=== PATIENT | female | born 1970 | race Caucasian/White ===

== ENCOUNTER 2018-01-11 08:41 | Inpatient (IN) ==
[2018-01-11] MEDS ORDERED: niCARdipine Inj 25 MG in Sodium Chlor 0.9% Inj 240 ML IV.CONT PRN (09:05)
--- NOTE | 2018-01-11 09:08 | ED ---
HPI General Chief Complaint: Neuro Symptoms/Deficit Stated Complaint: blood pressure complaint Time Seen by Provider: 01/11/18 09:00 Source: patient and RN notes reviewed Mode of arrival: wheelchair History of Present Illness HPI Narrative: The patient is a 47-year-old female with history of narcolepsy and cataplexy she is a nurse here on the ninth floor and around 750 she started having diaphoresis feeling lightheaded and nauseous with blurry vision and a blood pressure 174/107. Patient was brought to the emergency department for evaluation at 9 AM. She had difficulty transferring from the wheelchair to the bed and has left-sided weakness. Onset (ago): minute(s) (70) Time: 07:50 Last Observed Normal: 07:50 Timing confirmed by: other (co-workers) Location: Reports right face, left arm and left leg History of same: No Severity: mild Quality: Reports weak Relieving factors: none Context: Reports sudden onset On Anticoagulants: No Associated symptoms: Reports confusion and other (nausea, diaphoresis, lightheaded, ) Treatments Prior to Arrival: Reports none Related Data Allergies Allergy/AdvReac Type Severity Reaction Status Date / Time No Known Allergies Allergy Unverified 01/11/18 09:03 Review of Systems ROS: all other systems reviewed are negative (pt with cataplexy and narcolepsy) REPLACED BY [facility] Medical History Medical History HTN (hypertension) (Acute) Social History Social History Substance History: No History of Abuse Smoking Status: Current every day smoker Tobacco Type: Cigarettes How Often Do You Have a Drink Containing Alcohol: Monthly or less Recent Travel in [facility] within the Last 8 Weeks: No Recent Out of Country Travel within the Last 8 Weeks: No Immunization History Tetanus Immunization: <5 Years Exam Narrative Exam Narrative: GENERAL: alert and oriented in mild distress due to anxiety SKIN: Focused skin assessment warm/dry. HEAD: Atraumatic. Normocephalic. EYES: Pupils equal and round. No scleral icterus. No injection or drainage. ENT: No nasal bleeding or discharge. Mucous membranes pink and moist. NECK: Trachea midline. No JVD. CARDIOVASCULAR: Regular rate and rhythm. No murmur appreciated. RESPIRATORY: No accessory muscle use. Clear to auscultation. Breath sounds equal bilaterally. GASTROINTESTINAL: Abdomen soft, non-tender, nondistended. Hepatic and splenic margins not palpable. MUSCULOSKELETAL: No obvious deformities. No clubbing. No cyanosis. No edema. . PSYCHIATRIC: Appropriate mood and affect; insight and judgment normal. Neuro General: alert, awake, oriented x3, moves all extremities and unable to assess gait Cranial Nerves: PERRL, EOM intact bilaterally, no nystagmus, hearing normal, able to elevate shoulders bilaterally, individual cranial nerve findings VII: abnormal (right facial droop) and Symmetric palate elevation Cognition: normal cognition Speech: speech normal Motor: strength not 5/5 throughout, no pronator drift and muscle tone abnormal left upper extremity other (4/5 when compared to left)left lower extremity other (4/5 when compared to left falls after 5 seconds) DTR's: Rt Brachioradialis: 2+, Lt Brachioradialis: 2+, Lt Patellar: 0 and Rt Ankle: 0 Course Reevaluation(s) Reevaluation #1: Patient have completely resolved. NIH at this time is 0 and her blood pressure is 159/94. Neurology recommends p.o. Plavix and aspirin and admission to ICU stepdown Time: 10:01 Consultations Consultation #1: Dr. Schaefer wants to be informed of the results for CTs. Time: 09:09 Initial Documented Vital Signs Temperature 97.8 F 01/11/18 08:45 Pulse Rate 87 01/11/18 08:45 Respiratory Rate 16 01/11/18 08:45 Blood Pressure 182/106 H 01/11/18 08:45 Pulse Oximetry 98 01/11/18 08:45 Last Documented Vital Signs Temperature 97.8 F 01/11/18 08:45 Pulse Rate 70 01/11/18 09:13 Respiratory Rate 19 01/11/18 09:13 Blood Pressure 159/94 H 01/11/18 09:13 Pulse Oximetry 99 01/11/18 09:13 Critical Care Time Critical Care Time: Yes Total Critical Care Time: 30 Attestation: Aggregate critical care time was 30 minutes. Time to perform other separately billable procedures was not included in the critical care time. My time did not include minutes spent treating any other patients simultaneously or on activities that did not directly contribute to the patient's treatment. The services I provided to this patient were to treat and/or prevent clinically significant deterioration that could result in: I provided critical care services requiring my management, as noted below: Chart data review, documentation time, medication orders and management, vital sign assessments/reviewing monitor data, ordering and reviewing lab tests, ordering and interpreting/reviewing x-rays and diagnostic studies, care of the patient and discussion of the patient with the admitting physicians. NIH Stroke Scale NIHSS Time Completed NIHSS Time Completed: 09:00 NIH Stroke Scale Level of Consciousness: 0-Alert Orientation Questions: 0-Answers both correct Responds to Commands: 0-Both tasks correct Gaze Eye Movement: 0-Horizontal movement WNL Visual Finley: 0-No visual field defect Facial Movement: 1-Minor facial palsy Motor Functions Arm LEFT: 0-No drift Motor Functions Arm RIGHT: 0-No drift Motor Functions Leg LEFT: 1-Drift before 5 seconds Motor Functions Leg RIGHT: 0-No drift Limb Ataxia: 1-Ataxia in one limb Sensory Loss: 0-No sensory loss Best Language: 0-Normal Articulation: 0-Normal Extinction or Inattention Sensory: 0-Absent Total: 3 Medical Decision Making MDM Narrative Medical decision making narrative: Hypokalemia noted and replaced in the ED. NIH 0 at time of reassessment at all neurologic deficits have resolved.She with neurologic symptoms that resolved within an hour. Possibly hypertensive crisis versus TIA. CT head and neck were unremarkable. Neurology was consulted and recommends admission to an intensive care unit with Plavix and p.o. aspirin. Medical Screen Exam Complete: Yes Emergency Medical Condition: Yes Lab Data Lab results reviewed: Yes I reviewed the patient's lab results. Result diagrams: 01/11/18 09:00 01/11/18 09:00 Lab Results 01/11/18 01/11/18 01/11/18 Range/Units 08:59 09:00 09:00 WBC 9.9 (4.0-11.0) th/mm3 RBC 4.95 (4.00-5.30) mil/mm3 Hgb 14.5 (11.6-15.3) gm/dL POC Hgb (Calc) (11.6-15.3) g/dL Hct 43.1 (35.0-46.0) % POC Hct (35-46.0) % MCV 87.1 (80.0-100.0) fL MCH 29.4 (27.0-34.0) pg MCHC 33.7 (32.0-36.0) % RDW 13.4 (11.6-17.2) % Plt Count 238 (150-450) th/mm3 MPV 9.6 (7.0-11.0) fL Neut % (Auto) 58.7 (16.0-70.0) % Lymph % (Auto) 31.8 (9.0-44.0) % Knott % (Auto) 6.7 (0.0-8.0) % Eos % (Auto) 2.3 (0.0-4.0) % Baso % (Auto) 0.5 (0.0-2.0) % Neut # (Auto) 5.8 (1.8-7.7) th/mm3 Lymph # (Auto) 3.1 (1.0-4.8) th/mm3 Knott # (Auto) 0.7 (0.0-0.9) th/mm3 Eos # (Auto) 0.2 (0.0-0.4) th/mm3 Baso # (Auto) 0.1 (0.0-0.2) th/mm3 WBC Differential . Differential Comment Auto diff final PT 10.0 (9.8-11.6) sec INR 1.0 Ratio APTT 25.2 (24.3-30.1) sec POC Sodium (137-144) mmol/L Sodium (136-145) meq/L POC Potassium (3.6-5.0) mmol/L Potassium (3.5-5.1) meq/L POC Chloride (102-111) mmol/L Chloride (98-107) meq/L Carbon Dioxide (21.0-32.0) meq/L Anion Gap (5-15) meq/L POC BUN (5-21) mg/dL BUN (7-18) mg/dL Creatinine (0.50-1.00) mg/dL POC Creatinine (0.6-1.3) mg/dL Estimated GFR (>89) mL/min POC Glucose 103 (68-110) mg/dl Random Glucose (74-106) mg/dL Calcium (8.5-10.1) mg/dL Total Creatine Kinase (26-192) U/L CK-MB (CK-2) (0.5-3.6) ng/mL CK-MB (CK-2) % (0.0-4.0) % Troponin I (0.02-0.05) ng/mL 01/11/18 Range/Units 09:00 WBC (4.0-11.0) th/mm3 RBC (4.00-5.30) mil/mm3 Hgb (11.6-15.3) gm/dL POC Hgb (Calc) 14.3 (11.6-15.3) g/dL Hct (35.0-46.0) % POC Hct 42.0 (35-46.0) % MCV (80.0-100.0) fL MCH (27.0-34.0) pg MCHC (32.0-36.0) % RDW (11.6-17.2) % Plt Count (150-450) th/mm3 MPV (7.0-11.0) fL Neut % (Auto) (16.0-70.0) % Lymph % (Auto) (9.0-44.0) % Knott % (Auto) (0.0-8.0) % Eos % (Auto) (0.0-4.0) % Baso % (Auto) (0.0-2.0) % Neut # (Auto) (1.8-7.7) th/mm3 Lymph # (Auto) (1.0-4.8) th/mm3 Knott # (Auto) (0.0-0.9) th/mm3 Eos # (Auto) (0.0-0.4) th/mm3 Baso # (Auto) (0.0-0.2) th/mm3 WBC Differential Differential Comment PT (9.8-11.6) sec INR Ratio APTT (24.3-30.1) sec POC Sodium 145 H (137-144) mmol/L Sodium 141 (136-145) meq/L POC Potassium 3.1 L (3.6-5.0) mmol/L Potassium 3.2 L (3.5-5.1) meq/L POC Chloride (102-111) mmol/L Chloride 106 (98-107) meq/L Carbon Dioxide 24.5 (21.0-32.0) meq/L Anion Gap 11 (5-15) meq/L POC BUN 21 (5-21) mg/dL BUN 21 H (7-18) mg/dL Creatinine 0.67 (0.50-1.00) mg/dL POC Creatinine 0.6 (0.6-1.3) mg/dL Estimated GFR Greater than 89 (>89) mL/min POC Glucose 100 (68-110) mg/dl Random Glucose 100 (74-106) mg/dL Calcium 9.4 (8.5-10.1) mg/dL Total Creatine Kinase 253 H (26-192) U/L CK-MB (CK-2) 4.5 H (0.5-3.6) ng/mL CK-MB (CK-2) % 1.8 (0.0-4.0) % Troponin I Less than 0.02 L (0.02-0.05) ng/mL Imaging Data Radiologist's impression: Head CTA 01/11/18 09:03 CONCLUSION: 1. Unremarkable CTA of the brain. Chest X-Ray 01/11/18 09:04 CONCLUSION: No acute cardiopulmonary disease. Head CT 01/11/18 09:04 CONCLUSION: 1. Unremarkable CT scan of the brain. Report was called by [ Dr. Browne to Dr. Powell at 9:20 AM] Neck CTA 01/11/18 09:09 CONCLUSION: 1. Unremarkable CTA of the carotids. ECG Data EKG Prior to Arrival: No Attestation: I personally reviewed and interpreted this ECG as follows: Interpretation: Sinus rhythm with a first-degree AV block. Left atrial enlargement. Heart rate 83 bpm QTc 416 ms KS interval [address]- T wave abnormalities. No signs of acute ischemia. Discharge Plan Discharge Disposition Patient Disposition: 30 Still Patient Discharge Condition Condition: Stable Discharge Details Diagnosis: Transient cerebral ischemia, Hypokalemia, Hypertensive crisis Physicians Team ED Provider: Neal Powell Discharge Interventions Interventions: Vital Signs Last Done: 01/11/18 09:13 Status ED Status: Pending Admission
[2018-01-11] MEDS ORDERED: Sod Chloride 0.9% Inj 1,000 ML IV.CONT SCH (09:15)
[2018-01-11 09:19] LABS: Baso # (Auto) 0.1 th/mm3 (0.0-0.2); Baso % (Auto) 0.5 % (0.0-2.0); Eos # (Auto) 0.2 th/mm3 (0.0-0.4); Eos % (Auto) 2.3 % (0.0-4.0); Hematocrit 43.1 % (35.0-46.0); Hemoglobin 14.5 gm/dL (11.6-15.3); Lymph # (Auto) 3.1 th/mm3 (1.0-4.8); Lymph % (Auto) 31.8 % (9.0-44.0); Mean Corpuscular HGB Conc 33.7 % (32.0-36.0); Mean Corpuscular Hemoglobin 29.4 pg (27.0-34.0); Mean Corpuscular Volume 87.1 fL (80.0-100.0); Mean Platelet Volume 9.6 fL (7.0-11.0); Mono # (Auto) 0.7 th/mm3 (0.0-0.9); Mono % (Auto) 6.7 % (0.0-8.0); Neut # (Auto) 5.8 th/mm3 (1.8-7.7); Neut % (Auto) 58.7 % (16.0-70.0); Platelet Count 238 th/mm3 (150-450); Red Blood Count 4.95 mil/mm3 (4.00-5.30); Red Cell Distribution Width 13.4 % (11.6-17.2); White Blood Count 9.9 th/mm3 (4.0-11.0)
--- NOTE | 2018-01-11 09:23 | CT ---
EXAM DATE: 01/11/2018 9:11 AM EDT AGE/SEX: 47 years / Female INDICATIONS: Stroke alert, left sided weakness, right facial droop CLINICAL DATA: This is the patient's initial encounter. Patient reports that signs and symptoms have been present for 1 day and indicates a pain score of 0/10. MEDICAL/SURGICAL HISTORY: Hypertension. None. RADIATION DOSE: 35.47 CTDI (mGy) COMPARISON: No prior exams available for comparison. TECHNIQUE: CT of the head without contrast. Using automated exposure control and adjustment of the mA and/or kV according to patient size, radiation dose was kept as low as reasonably achievable to ob tain optimal diagnostic quality images. DICOM format image data is available electronically for revi ew and comparison. FINDINGS: Cerebrum: The ventricles are normal for age. No evidence of midline shift, mass lesion, hemorrhage or acute infarction. No extraaxial fluid collections are seen. Posterior Fossa: The cerebellum and brainstem are intact. The 4th ventricle is midline. The cerebe llopontine angle is unremarkable. Extracranial: The visualized portion of the orbits is intact. Skull: The calvaria is intact. No evidence of skull fracture. CONCLUSION: 1. Unremarkable CT scan of the brain. Report was called by [ Dr. Browne to Dr. Powell at 9:20 AM] Electronically signed by: Sergio Browne MD 01/11/2018 9:22 AM EDT
[2018-01-11 09:30] LABS: Activated Partial Thrombo Time 25.2 sec (24.3-30.1)
[2018-01-11 09:38] LABS: Anion Gap 11 meq/L (5-15); Blood Urea Nitrogen 21 mg/dL (7-18); Calcium 9.4 mg/dL (8.5-10.1); Carbon Dioxide 24.5 meq/L (21.0-32.0); Chloride 106 meq/L (98-107); Glomerular Filtration Rate Greater Than 89 mL/min (>89); Glucose,Random 100 mg/dL (74-106); Potassium 3.2 meq/L (3.5-5.1); Sodium 141 meq/L (136-145)
[2018-01-11 09:42] LABS: Creatine Kinase 253 U/L (26-192)
--- NOTE | 2018-01-11 09:44 | CT ---
EXAM DATE: 01/11/2018 9:11 AM EDT AGE/SEX: 47 years / Female INDICATIONS: Stroke alert. Left sided weakness. Right facial droop. CLINICAL DATA: This is the patient's initial encounter. Patient reports that signs and symptoms have been present for 1 day and indicates a pain score of 10/10. MEDICAL/SURGICAL HISTORY: Hypertension. None. RADIATION DOSE: 28.47 CTDI (mGy) ; Combined studies [place] [facility] [place]. . TECHNIQUE: Volumetric scanning was performed using a multi-row detector CT scanner during bolus infu dorina of 95 ml Visipaque 320 (iodixanol) nonionic water-soluble contrast as a cumulative dose for mul tiple exams. The data was post processed with a variety of visualization algorithms including full volume maximum intensity projection, multi-planar sliding thin slab reformation, curved planar reform ation, and surface rendering techniques. Using automated exposure control and adjustment of the mA a nd/or kV according to patient size, radiation dose was kept as low as reasonably achievable to obtain optimal diagnostic quality images. DICOM format image data is available electronically for review a nd comparison. FINDINGS: There is excellent visualization of the major intracranial arteries out to the second-order branch ve ssels. There is no evidence for aneurysm, vessel truncation or stenosis, and no evidence for vascula r malformation. The findings were called by telephone by Dr. Browne to Dr. Schaefer at 9:41 AM. CONCLUSION: 1. Unremarkable CTA of the brain. Electronically signed by: Sergio Browne MD 01/11/2018 9:42 AM EDT
[2018-01-11] MEDS ORDERED: Sod Chloride 0.9% Inj 1,000 ML IV.SIG ONE (09:46)
--- NOTE | 2018-01-11 09:50 | XR ---
EXAM DATE: 01/11/2018 9:04 AM EDT AGE/SEX: 47 years / Female INDICATIONS: Stroke alert. Left-sided weakness and right facial droop. CLINICAL DATA: This is the patient's initial encounter. Patient reports that signs and symptoms have been present for 1 day and indicates a pain score of 0/10. MEDICAL/SURGICAL HISTORY: Hypertension. None. COMPARISON: No prior exams available for comparison. FINDINGS: A single AP view of the chest demonstrates the lungs to be symmetrically aerated without evidence of mass, infiltrate or effusion. The cardiomediastinal contours are unremarkable. Osseous structures a re intact. CONCLUSION: No acute cardiopulmonary disease. Electronically signed by: Onesimo Hoang MD 01/11/2018 9:49 AM EDT
[2018-01-11 09:54] LABS: CKMB Percent 1.8 % (0.0-4.0); Creatine Kinase MB 4.5 ng/mL (0.5-3.6)
[2018-01-11] MEDS ORDERED: Aspirin 325 MG Tablet PO ONE (09:57)
[2018-01-11] MEDS ORDERED: Butalbital/APAP/Caff 50/325/40 MG Tablet PO ONE (10:03)
--- NOTE | 2018-01-11 10:30 | CT ---
EXAM DATE: 01/11/2018 9:10 AM EDT AGE/SEX: 47 years / Female INDICATIONS: Stroke alert. Left sided weakness. Right facial droop. CLINICAL DATA: This is the patient's initial encounter. Patient reports that signs and symptoms have been present for 1 day and indicates a pain score of 10/10. MEDICAL/SURGICAL HISTORY: Hypertension. None. RADIATION DOSE: 28.47 CTDI (mGy) ; Combined studies COMPARISON: No prior exams available for comparison. TECHNIQUE: Volumetric scanning was performed using a multirow detector CT scanner during bolus infus ion of 95 ml Visipaque 320 (iodixanol) nonionic water-soluble contrast as a cumulative dose for mult iple exams. The data was postprocessed with a variety of visualization algorithms including full-vo lume maximum intensity projection, multiplanar sliding thin-slab reformation, curved-planar reformati on, and surface-rendering techniques. Using automated exposure control and adjustment of the mA and/ or kV according to patient size, radiation dose was kept as low as reasonably achievable to obtain op timal diagnostic quality images. DICOM format image data is available electronically for review and comparison. FINDINGS: Aortic Arch: There is a three-vessel origin of the great vessels from the aorta. No evidence of ost ial narrowing Right Carotid: The common carotid artery is intact. The carotid bulb has a normal configuration wit hout ulceration or narrowing. The internal carotid artery lumen is smooth without stenosis. The ext ernal carotid artery is intact. Left Carotid: The common carotid artery is intact. The carotid bulb has a normal configuration with out ulceration or narrowing. The internal carotid artery lumen is smooth without stenosis. The exte rnal carotid artery is intact. Vertebrals: The vertebral arteries are patent bilaterally. No stenotic lesions are seen. Percent stenosis is calculated using the diameter of the stenotic region over the diameter of the nor mal distal internal carotid artery. CONCLUSION: 1. Unremarkable CTA of the carotids. Electronically signed by: Sergio Browne MD 01/11/2018 10:29 AM EDT
[2018-01-11] MEDS ORDERED: KCL 20 mEq/D5W/NaCl 0.9% Inj 1,000 ML IV.CONT SCH (10:44)
[2018-01-11 11:28] LABS: Bacteria,Urine Rare /hpf; Bilirubin,Urine Negative (Negative); Clarity,Urine Hazy (Clear); Color,Urine Yellow (Yellw/Straw); Glucose,Urine (UA) Negative (Negative); Leukocyte Esterase,Urine Negative (Negative); Mucus,Urine Few /lpf (Occasional); Nitrite,Urine Negative (Negative); Specific Gravity,Urine 1.017 (1.002-1.035); Squamous Epithelial Cell,Urine 1 /hpf (0-5)
--- NOTE | 2018-01-11 16:01 | ECHRPT ---
Indication: CVA/TIA CONCLUSIONS The left ventricular systolic function is low normal with an estimated ejection fraction in the rang e of 50- 55%. Wall thickness is normal. Normal left ventricular size. Trace mitral valve regurgitation. BP: / HR: 70 Rhythm: Sinus MEASUREMENTS (Male / Female) Normal Values Technical Quality:Good 2D ECHO LV Diastolic Diameter PLAX 4.8 cm 4.2 - 5.9 / 3.9 - 5.3 cm LV Systolic Diameter PLAX 3.7 cm IVS Diastolic Thickness 1.0 cm 0.6 - 1.0 / 0.6 - 0.9 cm LVPW Diastolic Thickness 1.0 cm 0.6 - 1.0 / 0.6 - 0.9 cm LV Relative Wall Thickness 0.4 LVOT Diameter 2.0 cm M-MODE Aortic Root Diameter MM 2.7 cm LA Systolic Diameter MM 3.3 cm LA Ao Ratio MM 1.2 AV Cusp Separation MM 2.1 cm DOPPLER AV Peak Velocity 151.0 cm/s AV Peak Gradient 9.1 mmHg LVOT Peak Velocity 133.0 cm/s LVOT Peak Gradient 7.1 mmHg AV Area Cont Eq pk 2.8 cm MR Peak Velocity 288.0 cm/s MR Peak Gradient 33.2 mmHg Mitral E Point Velocity 85.9 cm/s Mitral A Point Velocity 73.5 cm/s Mitral E to A Ratio 1.2 LV E' Lateral Velocity 12.8 cm/s Mitral E to LV E' Lateral Ratio 6.7 LV E' Septal Velocity 10.5 cm/s Mitral E to LV E' Septal Ratio 8.2 PV Peak Velocity 117.0 cm/s PV Peak Gradient 5.5 mmHg FINDINGS LEFT VENTRICLE The left ventricular systolic function is low normal with an estimated ejection fraction in the rang e of 50- 55%. Wall thickness is normal. Normal left ventricular size. RIGHT VENTRICLE Normal right ventricular size and systolic function. LEFT ATRIUM The left atrial size is normal. RIGHT ATRIUM The right atrial size is normal. ATRIAL SEPTUM Normal atrial septal thickness without atrial level shunting by limited color doppler interrogation. AORTA The aortic root and proximal ascending aorta are normal in size on limited imaging. MITRAL VALVE Trace mitral valve regurgitation. Mild mitral annular calcification. AORTIC VALVE Trileaflet aortic valve. No aortic valve stenosis or regurgitation. TRICUSPID VALVE Structurally normal tricuspid valve. No tricuspid valve stenosis or regurgitation. PULMONARY VALVE The pulmonary valve is not well visualized. VESSELS The inferior vena cava is normal in size. PERICARDIUM No pericardial effusion. Jhoan Holder MD (Electronically Signed) Final Date:11 January 2018 16:00
--- NOTE | 2018-01-11 16:26 | P.CONNEU ---
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 brought into the ER. They noticed her to have a possible mild left-sided weakness which improved and resolved in the ER NIH stroke scale score 0 therefore not a TPA candidate. She had a CT brain, CT brain carotids performed which were negative. She was quite hypertensive in the ER. no hx of tia/stroke/sz. no hx of clotting d/o. admits to moderate stress. hx of depression, anxiety. hx of narcolepsy with cataplexy. takes effexor/ritalin/xyrem. moved down to [place] over a year ago. Review of Systems All other systems reviewed negative except as stated in HPI PMFSH - History History Provided By: Patient - Medical History Medical History: Medical History (Last Reviewed 01/11/18 @ 17:15 by Gigi Day) HTN (hypertension) - Tobacco History Tobacco Use In Past 30 Days: Yes Smoking Status: Current every day smoker Tobacco Type: Cigarettes - Alcohol History How Often Do You Have a Drink Containing Alcohol: Monthly or less - Substance Use History Substance History: No History of Abuse - Travel History Recent Travel in the [place] Within the Last 8 Weeks: No Recent Travel Out of the Country Within the Last 8 Weeks: No - Immunization History Tetanus Immunization: <5 Years Medications and Allergies Active Medications: Active Medications Sodium Chloride (Ns Inj) 1,000 mls @ 70 mls/hr IV.CONT .[id number] PENDING SALE TO [facility] Stop: 01/11/18 23:32 Last Admin: 01/11/18 09:54 Dose: 70 mls/hr Potassium Chloride/Dextrose/Sod Cl (D5w/Ns + Kcl 20 Meq Inj) 1,000 mls @ 42 mls /hr IV.CONT .[id number] PENDING SALE TO [facility] Last Admin: 01/11/18 12:22 Dose: 42 mls/hr Sodium Chloride (Ns Flush) 2 ml IV.FLUSH PRN PRN PRN Reason: FLUSH AFTER USING IV ACCESS Allergies Allergy/AdvReac Type Severity Reaction Status Date / Time No Known Allergies Allergy Unverified 01/11/18 09:03 Home Medications Medication Instructions Recorded Confirmed Type Effexor XR 75 mg PO DAILY 01/11/18 01/11/18 History Xyrem 01/11/18 01/11/18 History gabapentin 400 mg PO HS 01/11/18 01/11/18 History methylphenidate HCl 10 mg PO BID 01/11/18 01/11/18 History prazosin [Minipress] 3 mg PO DAILY 01/11/18 01/11/18 History venlafaxine 75 mg PO DAILY 01/11/18 01/11/18 History Exam Vital signs: Vital Signs 01/11/18 08:45 01/11/18 08:49 01/11/18 09:03 Temperature 97.8 F Pulse Rate 87 95 H 75 Respiratory Rate 16 21 19 Blood Pressure 182/106 H 204/115 H 193/112 H Pulse Oximetry 98 99 01/11/18 09:07 01/11/18 09:08 01/11/18 09:13 Temperature Pulse Rate 70 70 Respiratory Rate 19 19 Blood Pressure 158/96 H 159/94 H Pulse Oximetry 98 99 99 01/11/18 10:00 01/11/18 14:00 01/11/18 15:00 Temperature 98.2 F Pulse Rate 68 76 70 Respiratory Rate 20 19 Blood Pressure 152/67 H 145/79 H Pulse Oximetry 97 97 Intake & Output 01/10/18 01/11/18 01/11/18 18:59 06:59 18:59 Intake Total 1000 / 1000 Balance 1000 / 1000 Weight 93.44 kg Intake: IV 1000 / 1000 NS Inj 1,000 ML @ Wide Open IV. 1000 / 1000 SIG BOLUS ONE Rx#:[id number] Narrative: GENERAL: in NAD, SKIN: Warm and dry. HEAD: Atraumatic. Normocephalic. EYES: Pupils equal and round. No scleral icterus. ENT: No nasal bleeding or discharge. Mucous membranes pink and moist. NECK: Trachea midline. No JVD. CARDIOVASCULAR: Regular rate and rhythm. RESPIRATORY: No accessory muscle use. MUSCULOSKELETAL: Extremities without clubbing, cyanosis, or edema. No obvious deformities. NEUROLOGICAL: Awake and alert. No aphasia, fluent articulate, No facial asymmetry, OU 3-2mm, slightly mild left eye closure compared to the right Eomi, VFF, No drift, Motor grossly within normal limits. Five out of 5 muscle strength in the arms and legs. Tone normal in all 4 limbs, Sensory normal in all 4 extremities to pin, reflexes symmetric PSYCHIATRIC: Appropriate mood and affect; insight and judgment normal. - Constitutional no acute distress - Routine HEENT Exam Head: Present: normocephalic Eye: Present: EOMI Results - Labs CBC & Chem 7: 01/11/18 09:00 01/11/18 09:00 Labs: Laboratory Results - last 24 hr 01/11/18 01/11/18 01/11/18 08:59 09:00 09:00 WBC 9.9 RBC 4.95 Hgb 14.5 POC Hgb (Calc) Hct 43.1 POC Hct MCV 87.1 MCH 29.4 MCHC 33.7 RDW 13.4 Plt Count 238 MPV 9.6 Neut % (Auto) 58.7 Lymph % (Auto) 31.8 Johnson % (Auto) 6.7 Eos % (Auto) 2.3 Baso % (Auto) 0.5 Neut # (Auto) 5.8 Lymph # (Auto) 3.1 Johnson # (Auto) 0.7 Eos # (Auto) 0.2 Baso # (Auto) 0.1 WBC Differential . Differential Comment Auto diff final PT 10.0 INR 1.0 APTT 25.2 POC Sodium Sodium POC Potassium Potassium POC Chloride Chloride Carbon Dioxide Anion Gap POC BUN BUN Creatinine POC Creatinine Estimated GFR POC Glucose 103 Random Glucose Calcium Total Creatine Kinase CK-MB (CK-2) CK-MB (CK-2) % Troponin I Urine Color Urine Clarity Urine pH Ur Specific [place] Urine Protein Urine Glucose (UA) Urine Ketones Urine Occult Blood Urine Nitrate Urine Bilirubin Urine Urobilinogen Ur Leukocyte Esterase Urine RBC Urine WBC Ur Squamous Epith Cells Urine Bacteria Urine Mucus Micro UA Comment Ur Microscopic Review Urine Culture Comments 01/11/18 01/11/18 01/11/18 09:00 09:49 12:00 WBC RBC Hgb POC Hgb (Calc) 14.3 Hct POC Hct 42.0 MCV MCH MCHC RDW Plt Count MPV Neut % (Auto) Lymph % (Auto) Johnson % (Auto) Eos % (Auto) Baso % (Auto) Neut # (Auto) Lymph # (Auto) Johnson # (Auto) Eos # (Auto) Baso # (Auto) WBC Differential Differential Comment PT INR APTT POC Sodium 145 H Sodium 141 POC Potassium 3.1 L Potassium 3.2 L POC Chloride Chloride 106 Carbon Dioxide 24.5 Anion Gap 11 POC BUN 21 BUN 21 H Creatinine 0.67 POC Creatinine 0.6 Estimated GFR Greater than 89 POC Glucose 100 99 Random Glucose 100 Calcium 9.4 Total Creatine Kinase 253 H CK-MB (CK-2) 4.5 H CK-MB (CK-2) % 1.8 Troponin I Less than 0.02 L Urine Color Yellow Urine Clarity Hazy H Urine pH 8.0 Ur Specific [place] 1.017 Urine Protein Negative Urine Glucose (UA) Negative Urine Ketones Negative Urine Occult Blood Small H Urine Nitrate Negative Urine Bilirubin Negative Urine Urobilinogen Less than 2 Ur Leukocyte Esterase Negative Urine RBC Less than 1 Urine WBC Less than 1 Ur Squamous Epith Cells 1 Urine Bacteria Rare H Urine Mucus Few H Micro UA Comment Culture not ind Ur Microscopic Review Not Reportable Urine Culture Comments Culture not ind - Imaging Impressions Head CTA 01/11/18 09:03 CONCLUSION: 1. Unremarkable CTA of the brain. Chest X-Ray 01/11/18 09:04 CONCLUSION: No acute cardiopulmonary disease. Head CT 01/11/18 09:04 CONCLUSION: 1. Unremarkable CT scan of the brain. Report was called by [ Dr. Browne to Dr. Powell at 9:20 AM] Neck CTA 01/11/18 09:09 CONCLUSION: 1. Unremarkable CTA of the carotids. Review/Management - Diagnosis (1) Migraine Code(s): G43.909 - Migraine, unspecified, not intractable, without status migrainosus Status: Acute Current Visit: Yes (2) Narcolepsy Code(s): G47.419 - Narcolepsy without cataplexy Status: Acute Current Visit : Yes (3) Transient cerebral ischemia Code(s): G45.9 - Transient cerebral ischemic attack, unspecified Status: Acute Current Visit: Yes (4) Hypertensive crisis Code(s): I16.9 - Hypertensive crisis, unspecified Status: Acute Current Visit: Yes - Review/Management Plan: Hypertensive encephalopathy. She is on stimulants and an SN stress reduction RI which can elevate blood pressure in addition to moderate level of stress and anxiety that she is undergoing. I am not completely convinced that she had a TIA but a possibility Recommendation Aspirin 81 mg MRI brain Blood pressure control Echo Lipid, TSH, B12, HbA1c Therapy Telemetry SCDs Consideration of reducing dose of Ritalin or changing Effexor she can follow this up with her sleep doctor outpatient Behavioral modification and risk factor reduction. Weight loss, blood pressure control, blood sugar control, lipid control. Exercise Discharge planning after above studies have been completed (3) Transient cerebral ischemia Qualifiers: Transient cerebral ischemia type: unspecified Qualified Code(s): G45.9 - Transient cerebral ischemic attack, unspecified
--- NOTE | 2018-01-11 17:19 | P.HP ---
History of Present Illness Service: [facility] hospitalist service Primary Care Physician: UNKNOWN Chief Complaint: Generalized weakness lightheaded this History of Present Illness: Patient is a very pleasant 47-year-old female right-handed with history of hypertension but has been off her medications for about 6-8 weeks now that consist of lisinopril 20 mg daily and hydrochlorothiazide 25 mg daily as she states that she has lost weight by diet and working out, depression, cataplexy, obstructive sleep apnea followed by Dr. Owens who while at work here at [facility] started complaining of "not feeling well, lightheaded associated with left sided weakness. Patient did complain of some retro-orbital pain/headache. Specifically complained of the left eye being more blurry than usual and tearing of the left eye. No exudates. Tried to put on dark contact lens and did not feel right She feels like there is something sticking on that left eye. So she did not put in her contact lens Blood pressure was checked and was noted to be 184/107. Blood sugar was 109. Patient was brought down to the ER and admitted for further evaluation and management. Patient denies any recent fever nausea vomiting no diarrhea. Patient did mention that she is going from some emotional issues with her boyfriend. She takes Effexor 75 mg daily, gabapentin 400 mg at bedtime for depression and restless leg syndrome Prazosin 3 mg at bedtime for nightmares, Ritalin 10 mg twice daily for narcolepsy Xyram for narcolepsy 4.5g 10 PM and another dose 3 hours later- scheduled at 1 am Strong family history of colon cancer Inpatient Certification: I certify that the inpatient services were ordered in accordance with Medicare regulations governing the order. This includes certification that hospital inpatient services are reasonable and necessary and in the case of services not specified as inpatient-only under 42 CFR 419.22(n), that they are appropriately provided as inpatient services in accordance to with the 2-midnight benchmark under 43 CFR 412.3(e) Estimated Total Length of Stay (Days): 2 Plans for Post Hospital Care: Not yet determined Review of Systems No fever no chills no cough No nausea vomiting. No bleeding tendencies no leg swelling no history of seizure. PMFSH - History History Provided By: Patient - Medical / Surgical Hx Neg / Unobtainable Medical Problems Denied: Yes - Medical History Medical History: Medical History (Last Reviewed 01/11/18 @ 17:11 by Sam Sinclair MD) HTN (hypertension) - Tobacco History Tobacco Use In Past 30 Days: Yes Smoking Status: Current every day smoker Tobacco Type: Cigarettes - Alcohol History How Often Do You Have a Drink Containing Alcohol: Monthly or less - Substance Use History Substance History: No History of Abuse - Travel History Recent Travel in the [place] Within the Last 8 Weeks: No Recent Travel Out of the Country Within the Last 8 Weeks: No - Immunization History Tetanus Immunization: <5 Years Medications and Allergies Active Medications: Active Medications Sodium Chloride (Ns Inj) 1,000 mls @ 70 mls/hr IV.CONT .[id number] [facility] Stop: 01/11/18 23:32 Last Admin: 01/11/18 09:54 Dose: 70 mls/hr Potassium Chloride/Dextrose/Sod Cl (D5w/Ns + Kcl 20 Meq Inj) 1,000 mls @ 42 mls /hr IV.CONT .[id number] [facility] Last Admin: 01/11/18 12:22 Dose: 42 mls/hr Sodium Chloride (Ns Flush) 2 ml IV.FLUSH PRN PRN PRN Reason: FLUSH AFTER USING IV ACCESS Allergies Allergy/AdvReac Type Severity Reaction Status Date / Time No Known Allergies Allergy Unverified 01/11/18 09:03 Home Medications Medication Instructions Recorded Confirmed Type Effexor XR 75 mg PO DAILY 01/11/18 01/11/18 History Xyrem 01/11/18 01/11/18 History gabapentin 400 mg PO HS 01/11/18 01/11/18 History methylphenidate HCl 10 mg PO BID 01/11/18 01/11/18 History prazosin [Minipress] 3 mg PO DAILY 01/11/18 01/11/18 History venlafaxine 75 mg PO DAILY 01/11/18 01/11/18 History Exam Vital signs: Vital Signs 01/11/18 08:45 01/11/18 08:49 01/11/18 09:03 Temperature 97.8 F Pulse Rate 87 95 H 75 Respiratory Rate 16 21 19 Blood Pressure 182/106 H 204/115 H 193/112 H Pulse Oximetry 98 99 01/11/18 09:07 01/11/18 09:08 01/11/18 09:13 Temperature Pulse Rate 70 70 Respiratory Rate 19 19 Blood Pressure 158/96 H 159/94 H Pulse Oximetry 98 99 99 01/11/18 10:00 01/11/18 14:00 01/11/18 15:00 Temperature 98.2 F Pulse Rate 68 76 70 Respiratory Rate 20 19 Blood Pressure 152/67 H 145/79 H Pulse Oximetry 97 97 Intake & Output 01/10/18 01/11/18 01/11/18 18:59 06:59 18:59 Intake Total 1000 / 1000 Balance 1000 / 1000 Weight 93.44 kg Intake: IV 1000 / 1000 NS Inj 1,000 ML @ Wide Open IV. 1000 / 1000 SIG BOLUS ONE Rx#:[id number] Narrative: Awake alert oriented x3 not in any form of distress blood pressure currently at bedside what BP 145/79 heart rate of 72 regular temperature afebrile HEENT exam anicteric sclerae pink palpebral conjunctivae pupils equally reactive to light slight injected sclerae. Neck was supple no nuchal rigidity no bruit Chest lungs clear breath sounds Heart regular rhythm no murmur Abdomen is soft nontender with good bowel sounds Extremities no clubbing no cyanosis no edema Neurologic exam ANO x3 clear speech Cranial nerves intact Motor 5/5 in all extremities chronic Grossly no sensory deficit DTRs +2 in all extremities Gait slow but steady Results - Labs CBC & Chem 7: 01/11/18 09:00 01/12/18 04:18 Labs: Laboratory Results - last 24 hr 01/11/18 01/11/18 01/11/18 08:59 09:00 09:00 WBC 9.9 RBC 4.95 Hgb 14.5 POC Hgb (Calc) Hct 43.1 POC Hct MCV 87.1 MCH 29.4 MCHC 33.7 RDW 13.4 Plt Count 238 MPV 9.6 Neut % (Auto) 58.7 Lymph % (Auto) 31.8 Gordon % (Auto) 6.7 Eos % (Auto) 2.3 Baso % (Auto) 0.5 Neut # (Auto) 5.8 Lymph # (Auto) 3.1 Gordon # (Auto) 0.7 Eos # (Auto) 0.2 Baso # (Auto) 0.1 WBC Differential . Differential Comment Auto diff final PT 10.0 INR 1.0 APTT 25.2 POC Sodium Sodium POC Potassium Potassium POC Chloride Chloride Carbon Dioxide Anion Gap POC BUN BUN Creatinine POC Creatinine Estimated GFR POC Glucose 103 Random Glucose Calcium Total Creatine Kinase CK-MB (CK-2) CK-MB (CK-2) % Troponin I Urine Color Urine Clarity Urine pH Ur Specific [employer] Urine Protein Urine Glucose (UA) Urine Ketones Urine Occult Blood Urine Nitrate Urine Bilirubin Urine Urobilinogen Ur Leukocyte Esterase Urine RBC Urine WBC Ur Squamous Epith Cells Urine Bacteria Urine Mucus Micro UA Comment Ur Microscopic Review Urine Culture Comments 01/11/18 01/11/18 01/11/18 09:00 09:49 12:00 WBC RBC Hgb POC Hgb (Calc) 14.3 Hct POC Hct 42.0 MCV MCH MCHC RDW Plt Count MPV Neut % (Auto) Lymph % (Auto) Gordon % (Auto) Eos % (Auto) Baso % (Auto) Neut # (Auto) Lymph # (Auto) Gordon # (Auto) Eos # (Auto) Baso # (Auto) WBC Differential Differential Comment PT INR APTT POC Sodium 145 H Sodium 141 POC Potassium 3.1 L Potassium 3.2 L POC Chloride Chloride 106 Carbon Dioxide 24.5 Anion Gap 11 POC BUN 21 BUN 21 H Creatinine 0.67 POC Creatinine 0.6 Estimated GFR Greater than 89 POC Glucose 100 99 Random Glucose 100 Calcium 9.4 Total Creatine Kinase 253 H CK-MB (CK-2) 4.5 H CK-MB (CK-2) % 1.8 Troponin I Less than 0.02 L Urine Color Yellow Urine Clarity Hazy H Urine pH 8.0 Ur Specific [employer] 1.017 Urine Protein Negative Urine Glucose (UA) Negative Urine Ketones Negative Urine Occult Blood Small H Urine Nitrate Negative Urine Bilirubin Negative Urine Urobilinogen Less than 2 Ur Leukocyte Esterase Negative Urine RBC Less than 1 Urine WBC Less than 1 Ur Squamous Epith Cells 1 Urine Bacteria Rare H Urine Mucus Few H Micro UA Comment Culture not ind Ur Microscopic Review Not Reportable Urine Culture Comments Culture not ind - Imaging Impressions Head CTA 01/11/18 09:03 CONCLUSION: 1. Unremarkable CTA of the brain. Chest X-Ray 01/11/18 09:04 CONCLUSION: No acute cardiopulmonary disease. Head CT 01/11/18 09:04 CONCLUSION: 1. Unremarkable CT scan of the brain. Report was called by [ Dr. Browne to Dr. Powell at 9:20 AM] Neck CTA 01/11/18 09:09 CONCLUSION: 1. Unremarkable CTA of the carotids. Twelve-lead EKG normal sinus rhythm no acute ST-T wave changes Caprini VTE Risk Assessment Caprini VTE Risk Assessment: Moderate/High Risk (score >= 2) Caprini Risk Assessment Model: Point Value = 1 Point Value = 2 Point Value = 3 Point Value = 5 Age 41-60 Minor surgery BMI > 25 kg/m2 Swollen legs Varicose veins or History of unexplained or recurrent spontaneous Oral contraceptives or hormone replacement Sepsis (< 1 month) Serious lung disease, including pneumonia (< 1 month) Abnormal pulmonary function Acute myocardial infarction Congestive heart failure (< 1 month) History of inflammatory bowel disease Medical patient at bed rest Age 61-74 Arthroscopic surgery Major open surgery (> 45 min) Laparoscopic surgery (> 45 min) Malignancy Confined to bed (> 72 hours) Immobilizing plaster cast Central venous access Age >= 75 History of VTE Family history of VTE Factor V Leiden Prothrombin [id number] Lupus anticoagulant Anticardiolipin antibodies Elevated serum homocysteine Heparin-induced thrombocytopenia Other congenital or acquired thrombophilia Stroke (< 1 month) Elective arthroplasty Hip, pelvis, or leg fracture Acute spinal cord injury (< 1 month) Prophylaxis Regimen: Total Risk Factor Score Risk Level Prophylaxis Regimen 0-1 Low Early ambulation 2 Moderate Order ONE of the following: *Sequential Compression Device (SCD) *Heparin 5000 units SQ BID 3-4 Higher Order ONE of the following medications: *Heparin 5000 units SQ TID *Enoxaparin/Lovenox 40 mg SQ daily (WT < 150 kg, CrCl > 30 mL/min) *Enoxaparin/Lovenox 30 mg SQ daily (WT < 150 kg, CrCl > 10-29 mL/min) *Enoxaparin/Lovenox 30 mg SQ BID (WT < 150 kg, CrCl > 30 mL/min) AND/OR *Sequential Compression Device (SCD) 5 or more Highest Order ONE of the following medications: *Heparin 5000 units SQ TID (Preferred with Epidurals) *Enoxaparin/Lovenox 40 mg SQ daily (WT < 150 kg, CrCl > 30 mL/min) *Enoxaparin/Lovenox 30 mg SQ daily (WT < 150 kg, CrCl > 10-29 mL/min) *Enoxaparin/Lovenox 30 mg SQ BID (WT < 150 kg, CrCl > 30 mL/min) AND *Sequential Compression Device (SCD) Assessment and Plan - Plan 47-year-old right-handed female presenting with left sided weakess , lightheadedness blurring of left eye TIA with left sided weakness- improved Blurry vision of the left eye with erythema of the sclerae.- persists Workup in progress-get 2D echo. place on telemetry Neck CTA MRI of the brain were all negative. Pateint received Plavix + ASA at ER. Will start Ecotrin 325 mg daily for now till seen by neurology - consulted throught ER PT/OT/speech therapy consult Get an ophthalmology evaluation. check lipid panel Hypertensive urgency With history of hypertension at one point was on lisinopril 20 mg daily and hydrochlorothiazide -but ran out and discontinued for the past 6 weeks now as she stated she had lost weight and states had good readings BP currently is 140/79. start LIsino[ril 5 mg daily Vasotec 1.25 mg IV q 6 prn for SBP > 170 Hypokalemia- patient received 40 merq po KCl recheck in am History of narcolepsy/cataplexy will continue on her ziram 4.5 g at 10 PM and another 4.5 g at 1 AM schedule family will bring her medications. Continue Ritalin 10 mg twice daily History of depression continue on Effexor 75 mg daily. History of restless leg syndrome. Continue gabapentin 400 mg at bedtime History of obstructive sleep apnea patient is set up to see Dr. Knight but to get a new machine Continue on her prazosin 3 mg at bedtime. Lovenox 30 mg subcu for DVT prophylaxis
[2018-01-11] MEDS: Acetaminophen 325 MG Tablet PO PRN (18:04)
[2018-01-11] MEDS ORDERED: Gabapentin 400 MG Capsule PO SCH (21:00)
[2018-01-11] MEDS ORDERED: Prazosin HCl 1 MG Capsule PO SCH (21:00)
[2018-01-11] MEDS ORDERED: SODIUM OXYBATE PO SCH (22:00)
[2018-01-11] MEDS ORDERED: Atropine Inj 1 MG/10 ML Syringe ONE (22:00)
--- NOTE | 2018-01-11 22:40 | MR ---
EXAM DATE: 01/11/2018 9:52 PM EDT AGE/SEX: 47 years / Female INDICATIONS: CVA. Right sided facial droop with left sided weakness for one day. CLINICAL DATA: This is the patient's initial encounter. Patient reports that signs and symptoms have been present for 1 day and indicates a pain score of 6/10. MEDICAL/SURGICAL HISTORY: Hypertension. Appendectomy. Hysterectomy. section. Right upper arm sx. COMPARISON: [facility] – [place], [place], CT HEAD W/O CONTRAST, 01/11/2018. . TECHNIQUE: Multiplanar, multisequence examination of the brain was performed without contrast. FINDINGS: Cerebrum: The ventricles are normal for age. No evidence of midline shift, mass lesion, hemorrhage or acute infarction. No extraaxial fluid collections are seen. The pituitary gland and suprasellar cistern are normal in configuration. White Matter: No significant signal abnormalities are seen in the white matter. Posterior Fossa: The cerebellum and brainstem are intact. The 4th ventricle is midline. The cerebel lopontine angle is unremarkable. The cerebellar tonsils are normal in position. Diffusion Imaging: No focal areas of restricted diffusion are seen. No evidence of acute infarction . Extracranial: The visualized portions of the orbits and paranasal sinuses are unremarkable. CONCLUSION: Negative noncontrast brain MRI examination. Electronically signed by: Phoenix Marin MD 01/11/2018 10:39 PM EDT
[2018-01-11] MEDS: SODIUM OXYBATE PO SCH (23:00)
[2018-01-12 00:39] VITALS: RESP 16
[2018-01-12] MEDS: SODIUM OXYBATE PO SCH (01:35)
[2018-01-12 06:48] LABS: Alanine Aminotransferase 25 U/L (10-53); Albumin 3.3 g/dL (3.4-5.0); Alkaline Phosphatase 67 U/L (45-117); Anion Gap 10 meq/L (5-15); Aspartate Aminotransferase 14 U/L (15-37); Blood Urea Nitrogen 16 mg/dL (7-18); Calcium 8.5 mg/dL (8.5-10.1); Carbon Dioxide 27.9 meq/L (21.0-32.0); Chloride 106 meq/L (98-107); Chol/HDL Ratio 3.82 Ratio; Cholesterol 182 mg/dL (120-200); Glomerular Filtration Rate Greater Than 89 mL/min (>89); Glucose,Random 90 mg/dL (74-106); HDL Cholesterol 47.6 mg/dL (40.0-60.0); LDL Cholesterol,Calculated 94 mg/dL (0-99); Potassium 3.2 meq/L (3.5-5.1); Sodium 144 meq/L (136-145); Total Protein 6.4 g/dL (6.4-8.2); Triglycerides 201 mg/dL (42-150); Vitamin B12 509 pg/mL (193-986)
--- NOTE | 2018-01-12 08:44 | P.PNIM ---
Subjective Interval history: Patient reports she is feeling great and back to her normal. She wants to go home. Physical Exam Vital signs: Vital Signs 01/11/18 08:45 01/11/18 08:49 01/11/18 09:03 Temperature 97.8 F Pulse Rate 87 95 H 75 Respiratory Rate 16 21 19 Blood Pressure 182/106 H 204/115 H 193/112 H Pulse Oximetry 98 99 01/11/18 09:07 01/11/18 09:08 01/11/18 09:13 Temperature Pulse Rate 70 70 Respiratory Rate 19 19 Blood Pressure 158/96 H 159/94 H Pulse Oximetry 98 99 99 01/11/18 10:00 01/11/18 14:00 01/11/18 15:00 Temperature 98.2 F Pulse Rate 68 76 70 Respiratory Rate 20 19 Blood Pressure 152/67 H 145/79 H Pulse Oximetry 97 97 01/11/18 16:09 01/11/18 16:36 01/11/18 17:36 Temperature 98.3 F Pulse Rate 63 58 L 56 L Respiratory Rate 20 Blood Pressure 147/99 H Pulse Oximetry 97 01/11/18 18:36 01/11/18 19:00 01/11/18 20:00 Temperature 98 F Pulse Rate 52 L 63 64 Respiratory Rate 16 Blood Pressure 149/93 H Pulse Oximetry 98 01/11/18 21:00 01/11/18 22:00 01/11/18 23:00 Temperature 97.9 F Pulse Rate 68 76 66 Respiratory Rate 16 Blood Pressure 127/67 Pulse Oximetry 98 01/12/18 00:00 01/12/18 01:00 01/12/18 02:00 Temperature Pulse Rate 64 53 L 55 L Respiratory Rate 16 Blood Pressure Pulse Oximetry 01/12/18 03:00 01/12/18 03:59 01/12/18 04:00 Temperature 97.6 F Pulse Rate 55 L 58 L 52 L Respiratory Rate 16 Blood Pressure 114/66 Pulse Oximetry 97 01/12/18 05:00 01/12/18 06:00 Temperature Pulse Rate 87 55 L Respiratory Rate Blood Pressure Pulse Oximetry Intake & Output 01/11/18 01/12/18 01/12/18 18:59 06:59 18:59 Intake Total 1480 / 1480 600 / 600 Output Total 500 / 500 1550 / 1550 Balance 980 / 980 -950 / -950 Weight 93.44 kg 92.5 kg Intake: IV 1000 / 1000 NS Inj 1,000 ML @ Wide Open IV. 1000 / 1000 SIG BOLUS ONE Rx#:[id number] Oral 480 / 480 600 / 600 Output: Urine 500 / 500 1550 / 1550 Other: # Bowel Movements 0 Narrative: GENERAL: This is a well-nourished, well-developed patient, in no apparent distress. CARDIOVASCULAR: Normal rate and regular rhythm without murmurs, gallops, or rubs. RESPIRATORY: Good respiratory efforts. Breath sounds equal and clear to auscultation bilaterally. GASTROINTESTINAL: Abdomen soft, non-tender, non-distended. Normal active bowel sounds MUSCULOSKELETAL: Extremities without cyanosis, or edema. NEURO: Alert & Oriented x4 to person, place, time, situation. Moves all ext x4 PSYCH: Appropriate mood and affect. Results - Labs CBC & Chem 7: 01/11/18 09:00 01/12/18 04:18 Laboratory Results - last 24 hr 01/11/18 01/11/18 01/11/18 08:59 09:00 09:00 WBC 9.9 RBC 4.95 Hgb 14.5 POC Hgb (Calc) Hct 43.1 POC Hct MCV 87.1 MCH 29.4 MCHC 33.7 RDW 13.4 Plt Count 238 MPV 9.6 Neut % (Auto) 58.7 Lymph % (Auto) 31.8 Woodruff % (Auto) 6.7 Eos % (Auto) 2.3 Baso % (Auto) 0.5 Neut # (Auto) 5.8 Lymph # (Auto) 3.1 Woodruff # (Auto) 0.7 Eos # (Auto) 0.2 Baso # (Auto) 0.1 WBC Differential . Differential Comment Auto diff final PT 10.0 INR 1.0 APTT 25.2 POC Sodium Sodium POC Potassium Potassium POC Chloride Chloride Carbon Dioxide Anion Gap POC BUN BUN Creatinine POC Creatinine Estimated GFR POC Glucose 103 Random Glucose Calcium Total Bilirubin AST ALT Alkaline Phosphatase Total Creatine Kinase CK-MB (CK-2) CK-MB (CK-2) % Troponin I Total Protein Albumin Triglycerides Cholesterol LDL Cholesterol, Calc HDL Cholesterol Cholesterol/HDL Ratio Vitamin B12 Urine Color Urine Clarity Urine pH Ur Specific Frederick Urine Protein Urine Glucose (UA) Urine Ketones Urine Occult Blood Urine Nitrate Urine Bilirubin Urine Urobilinogen Ur Leukocyte Esterase Urine RBC Urine WBC Ur Squamous Epith Cells Urine Bacteria Urine Mucus Micro UA Comment Ur Microscopic Review Urine Culture Comments 01/11/18 01/11/18 01/11/18 09:00 09:49 12:00 WBC RBC Hgb POC Hgb (Calc) 14.3 Hct POC Hct 42.0 MCV MCH MCHC RDW Plt Count MPV Neut % (Auto) Lymph % (Auto) Woodruff % (Auto) Eos % (Auto) Baso % (Auto) Neut # (Auto) Lymph # (Auto) Woodruff # (Auto) Eos # (Auto) Baso # (Auto) WBC Differential Differential Comment PT INR APTT POC Sodium 145 H Sodium 141 POC Potassium 3.1 L Potassium 3.2 L POC Chloride Chloride 106 Carbon Dioxide 24.5 Anion Gap 11 POC BUN 21 BUN 21 H Creatinine 0.67 POC Creatinine 0.6 Estimated GFR Greater than 89 POC Glucose 100 99 Random Glucose 100 Calcium 9.4 Total Bilirubin AST ALT Alkaline Phosphatase Total Creatine Kinase 253 H CK-MB (CK-2) 4.5 H CK-MB (CK-2) % 1.8 Troponin I Less than 0.02 L Total Protein Albumin Triglycerides Cholesterol LDL Cholesterol, Calc HDL Cholesterol Cholesterol/HDL Ratio Vitamin B12 Urine Color Yellow Urine Clarity Hazy H Urine pH 8.0 Ur Specific Frederick 1.017 Urine Protein Negative Urine Glucose (UA) Negative Urine Ketones Negative Urine Occult Blood Small H Urine Nitrate Negative Urine Bilirubin Negative Urine Urobilinogen Less than 2 Ur Leukocyte Esterase Negative Urine RBC Less than 1 Urine WBC Less than 1 Ur Squamous Epith Cells 1 Urine Bacteria Rare H Urine Mucus Few H Micro UA Comment Culture not ind Ur Microscopic Review Not Reportable Urine Culture Comments Culture not ind 01/12/18 04:18 WBC RBC Hgb POC Hgb (Calc) Hct POC Hct MCV MCH MCHC RDW Plt Count MPV Neut % (Auto) Lymph % (Auto) Woodruff % (Auto) Eos % (Auto) Baso % (Auto) Neut # (Auto) Lymph # (Auto) Woodruff # (Auto) Eos # (Auto) Baso # (Auto) WBC Differential Differential Comment PT INR APTT POC Sodium Sodium 144 POC Potassium Potassium 3.2 L POC Chloride Chloride 106 Carbon Dioxide 27.9 Anion Gap 10 POC BUN BUN 16 Creatinine 0.64 POC Creatinine Estimated GFR Greater than 89 POC Glucose Random Glucose 90 Calcium 8.5 D Total Bilirubin 0.3 AST 14 L ALT 25 Alkaline Phosphatase 67 Total Creatine Kinase CK-MB (CK-2) CK-MB (CK-2) % Troponin I Total Protein 6.4 Albumin 3.3 L Triglycerides 201 H Cholesterol 182 LDL Cholesterol, Calc 94 HDL Cholesterol 47.6 Cholesterol/HDL Ratio 3.82 Vitamin B12 509 Urine Color Urine Clarity Urine pH Ur Specific Frederick Urine Protein Urine Glucose (UA) Urine Ketones Urine Occult Blood Urine Nitrate Urine Bilirubin Urine Urobilinogen Ur Leukocyte Esterase Urine RBC Urine WBC Ur Squamous Epith Cells Urine Bacteria Urine Mucus Micro UA Comment Ur Microscopic Review Urine Culture Comments - Imaging Impressions Head MRI 01/11/18 00:00 CONCLUSION: Negative noncontrast brain MRI examination. Head CTA 01/11/18 09:03 CONCLUSION: 1. Unremarkable CTA of the brain. Chest X-Ray 01/11/18 09:04 CONCLUSION: No acute cardiopulmonary disease. Head CT 01/11/18 09:04 CONCLUSION: 1. Unremarkable CT scan of the brain. Report was called by [ Dr. Browne to Dr. Powell at 9:20 AM] Neck CTA 01/11/18 09:09 CONCLUSION: 1. Unremarkable CTA of the carotids. Assessment and Plan - Plan 47-year-old female who presented with left-sided weakness, blurry vision. Patient is on Ritalin and has been off her antihypertensives medications. Hypertensive encephalopathy: Presented with symptoms as above. - The patient was evaluated by neurology. TIA felt to be less likely. She was started on baby aspirin. Neck CTA and MRI of the brain were negative. 2D echocardiogram negative. Patient was started on lisinopril 5 mg daily. Her blood pressure normalized and her symptoms completely resolved. -Patient is discharged on lisinopril and advised to follow-up with her PCP outpatient to work on decreasing the dose of Ritalin. Hypokalemia: Replaced. Expect this to continue to improve with the addition of lisinopril. History of narcolepsy/cataplexy will continue on her ziram 4.5 g at 10 PM and another 4.5 g at 1 AM schedule family will bring her medications. Continue Ritalin 10 mg twice daily History of depression continue on Effexor 75 mg daily. History of restless leg syndrome. Continue gabapentin 400 mg at bedtime History of obstructive sleep apnea patient is set up to see Dr. Knight but to get a new machine Continue on her prazosin 3 mg at bedtime. Discharge Planning: Discharge patient to home Condition on discharge: Improved Regular Diet as tolerated Ad Katelyn activity Rx written: Lisinopril 5 mg daily Follow-up with primary care physician
[2018-01-12 08:58] VITALS: BP 141/87; TEMP 98.7; O2SAT 99
[2018-01-12] MEDS ORDERED: Venlafaxine XR 75 MG Capsule PO SCH (09:00)
[2018-01-12] MEDS ORDERED: Enoxaparin Inj 30 MG/0.3 ML Syringe SQ SCH (09:00)
[2018-01-12] MEDS ORDERED: Aspirin 325 MG Tablet PO SCH (09:00)
[2018-01-12] MEDS ORDERED: Lisinopril 5 MG Tablet PO SCH (09:00)
[2018-01-12] MEDS: Acetaminophen 325 MG Tablet PO PRN (09:20)
[2018-01-12 09:30] VITALS: PULSE 62
[2018-01-12 16:11] LABS: Hemoglobin A1c 5.9 % (4.3-6.0)
--- NOTE | 2018-01-12 18:25 | P.CON ---
History of Present Illness Service: Ophthalmology Reason for Consult: left eye irritation Primary Care Provider: UNKNOWN Chief Complaint: Generalized weakness lightheaded this History of Present Illness: 47 yo F with h/o hypertension, depression, cataplexy, obstructive sleep apnea who while at work here at [employer] started complaining of "not feeling well , lightheaded associated with left sided weakness. Stroke workup was negative. She also complained of left eye tearing, irritation, blurriness, and redness. She is a contact lens user and has been using her glasses since the discomfort started. [facility] - History History Provided By: Patient - Medical / Surgical Hx Neg / Unobtainable Medical Problems Denied: Yes - Medical History Medical History: Medical History (Last Reviewed 01/12/18 @ 08:58 by Mikayla Vasquez) HTN (hypertension) - Tobacco History Second Hand Smoke Exposure: Yes Tobacco Use In Past 30 Days: Yes Smoking Status: Current every day smoker Tobacco Type: Cigarettes - Alcohol History How Often Do You Have a Drink Containing Alcohol: Monthly or less - Substance Use History Substance History: No History of Abuse - Travel History Recent Travel in the [facility] Within the Last 8 Weeks: No Recent Travel Out of the Country Within the Last 8 Weeks: No - Immunization History Tetanus Immunization: <5 Years Hx Influenza Vaccine This Season: No Medications and Allergies Active Medications: Active Medications Acetaminophen (Tylenol) 650 mg PO Q4H PRN PRN Reason: HEADACHE Last Admin: 01/12/18 09:20 Dose: 650 mg Aspirin (Aspirin) 325 mg PO DAILY [facility] Last Admin: 01/12/18 09:21 Dose: 325 mg Enalaprilat (Vasotec Inj) 1.25 mg IV.PUSH Q6H PRN PRN Reason: BLOOD PRESSURE MANAGEMENT Enoxaparin Sodium (Lovenox Inj) 30 mg SQ DAILY [facility] Last Admin: 01/12/18 09:22 Dose: Not Given Gabapentin (Neurontin) 400 mg PO HS [facility] Last Admin: 01/11/18 21:32 Dose: 400 mg Potassium Chloride/Dextrose/Sod Cl (D5w/Ns + Kcl 20 Meq Inj) 1,000 mls @ 42 mls /hr IV.CONT .[id number] [facility] Last Infusion: 01/12/18 09:23 Dose: Infused Lisinopril (Prinivil) 5 mg PO DAILY [facility] Last Admin: 01/12/18 09:22 Dose: 5 mg Methylphenidate HCl (Ritalin) 10 mg PO BID@0700,1200 [facility] Last Admin: 01/12/18 07:39 Dose: 10 mg Pt:Xyrem Oral Solution 500 Mg/Ml 180 Ml 0 each PO BID@0100,2200 [facility] Last Admin: 01/12/18 01:35 Dose: 1 each Prazosin HCl (Minipress) 3 mg PO HS [facility] Last Admin: 01/11/18 21:32 Dose: 3 mg Sodium Chloride (Ns Flush) 2 ml IV.FLUSH PRN PRN PRN Reason: FLUSH AFTER USING IV ACCESS Venlafaxine HCl (Effexor Xr) 75 mg PO DAILY [facility] Last Admin: 01/12/18 09:22 Dose: 75 mg Allergies Allergy/AdvReac Type Severity Reaction Status Date / Time No Known Allergies Allergy Unverified 01/11/18 09:03 Home Medications Medication Instructions Recorded Confirmed Type Effexor XR 75 mg PO DAILY 01/11/18 01/11/18 History Xyrem 01/11/18 01/11/18 History gabapentin 400 mg PO HS 01/11/18 01/11/18 History methylphenidate HCl 10 mg PO BID 01/11/18 01/11/18 History prazosin [Minipress] 3 mg PO DAILY 01/11/18 01/11/18 History venlafaxine 75 mg PO DAILY 01/11/18 01/11/18 History Physical Exam Vital signs: Vital Signs 01/11/18 18:36 01/11/18 19:00 01/11/18 20:00 Temperature 98 F Pulse Rate 52 L 63 64 Respiratory Rate 16 Blood Pressure 149/93 H Pulse Oximetry 98 01/11/18 21:00 01/11/18 22:00 01/11/18 23:00 Temperature 97.9 F Pulse Rate 68 76 66 Respiratory Rate 16 Blood Pressure 127/67 Pulse Oximetry 98 01/12/18 00:00 01/12/18 01:00 01/12/18 02:00 Temperature Pulse Rate 64 53 L 55 L Respiratory Rate 16 Blood Pressure Pulse Oximetry 01/12/18 03:00 01/12/18 03:59 01/12/18 04:00 Temperature 97.6 F Pulse Rate 55 L 58 L 52 L Respiratory Rate 16 Blood Pressure 114/66 Pulse Oximetry 97 01/12/18 05:00 01/12/18 06:00 01/12/18 07:00 Temperature Pulse Rate 87 55 L 66 Respiratory Rate Blood Pressure Pulse Oximetry 01/12/18 08:00 01/12/18 09:00 Temperature 98.7 F Pulse Rate 66 62 Respiratory Rate 16 Blood Pressure 141/87 H Pulse Oximetry 99 Intake & Output 01/11/18 01/12/18 01/12/18 18:59 06:59 18:59 Intake Total 1480 / 1480 600 / 600 1900 / 1900 Output Total 500 / 500 1550 / 1550 Balance 980 / 980 -950 / -950 1900 / 1900 Weight 93.44 kg 92.5 kg Intake: IV 1000 / 1000 1900 / 1900 D5W/NS + KCL 20 mEq Inj 1,000 900 / 900 ML @ 42 mls/hr IV.CONT .[id number] RANDI Rx#:[id number] NS Inj 1,000 ML @ 70 mls/hr IV. 1000 / 1000 CONT .[id number] RANDI Rx#:[id number] NS Inj 1,000 ML @ Wide Open IV. 1000 / 1000 SIG BOLUS ONE Rx#:[id number] Oral 480 / 480 600 / 600 Output: Urine 500 / 500 1550 / 1550 Other: # Bowel Movements 0 - Detailed Eye Exam Comments: Va cc at near OD 20/30, OS 20/60 EOM full OU, no diplopia CVF full OU Pupils 2-1 no APD OU IOP normal to palpation OU Anterior exam OD - normal eyelid, C/S W&Q, K clear, AC deep, pupil round, lens clear OS - normal eyelid, conj injection, K clear, AC deep, pupil round, lens clear Assessment and Plan - Assessment (1) Scleritis Code(s): H15.009 - Unspecified scleritis, unspecified eye Status: Acute Plan: No contact lens for now. Start Prednisolone drops QID OS. Follow up in clinic after discharge.
--- NOTE | 2018-01-12 19:27 | ECG ---
Date Performed: 01/11/2018 Time Performed: 09:03:13 PTAGE: 47 years EKG: Sinus rhythm WITH FIRST DEGREE AV BLOCK POSSIBLE LEFT ATRIAL ENLARGEMENT ABNORMAL ECG WARNING: DATA QUALITY MAY A FFECT INTERPRETATION INTERPRETATION BASED ON A DEFAULT AGE OF 38 YEARS NO PREVIOUS TRACING DOCTOR: Zoran Alba Interpretating Date/Time 01/12/2018 19:25:58
== END 2018-01-12 10:16 | disposition home or self-care (01) ==
LOC: NEPE 08:41 → NEDA 10:39 → HCIS 13:00
PROVIDERS: ADMIT Family Medicine; ATTEND Family Medicine